=== PATIENT | female | born 1985 | race Caucasian/White ===

== ENCOUNTER 2018-07-28 15:23 | Emergency (ER) | payer MEDICAID ==
[~2018-07-28] VITALS: Ht 154.9 cm; Wt 78.0 kg
[~2018-07-28 15:23] MED LIST: PREN-129 OR
[2018-07-28 17:27] LABS: Urine Bacteria FEW /hpf (None Seen); Urine Blood Negative /uL (Negative); Urine Specific Gravity 1.009 (1.001-1.035); Urine WBC 56 /hpf (0 - 5)
[2018-07-28 17:37] LABS: Basophils # (auto) 0.1 uL; Basophils % (auto) 0.4 % (0.0-2.0); Eosinophils # (auto) 0.1 uL; Hematocrit 38.2 % (36.0-46.0); Lymphocytes % (auto) 14.7 % (10.0-50.0); Monocytes # (auto) 0.5 uL; Red Blood Cells 4.53 10^6/uL (4.0-5.20)
[2018-07-28 17:39] LABS: Eosinophils % (auto) 0.8 % (0.0-7.0); Hemoglobin 12.1 g/dL (12.2-16.2); Lymphocytes # (auto) 1.8 uL; Mean Corpuscular Hemoglobin 26.7 pg (28.0-32.0); Mean Corpuscular Hgb Conc. 31.7 g/dL (32.0-36.0); Mean Corpuscular Volume 84.1 fL (80.0-100.0); Monocytes % (auto) 3.9 % (0.0-12.0); Neutrophils % (auto) 80.2 % (37.0-80.0); Nucleated Red Blood Cells % 0.1 %; Platelet Count (auto) 271 10^3/uL (140-450); Red Cell Distribution Width 18.4 % (11.8-14.3); White Blood Cell 12.5 10^3/uL (4.4-10.8)
[2018-07-28 17:45] LABS: Potassium 3.5 mmol/L (3.5-5.1)
[2018-07-28 17:53] LABS: Albumin 3.1 g/dL (3.4-5.0); BUN/Creatinine Ratio 11.1; Bilirubin, Total 0.3 mg/dL (0.2-1.0); Calcium 11.5 mg/dL (8.5-10.1); Total Protein 7.1 g/dL (6.4-8.2)
[2018-07-28 18:35] VITALS: BP 142/86
== END 2018-07-28 19:06 | disposition home or self-care (01) ==
LOC: ER 15:23
DX: O23.41 Unspecified infection of urinary tract in pregnancy, first trimester (principal); O16.1 Unspecified maternal hypertension, first trimester; O99.331 Smoking (tobacco) complicating pregnancy, first trimester; Z88.6 Allergy status to analgesic agent; Z3A.12 12 weeks gestation of pregnancy
CPT/HCPCS: 36415; 76801; 80053; 81001; 82962; 84702; 85025